=== PATIENT | male | born 1950 | race Caucasian/White ===

== ENCOUNTER → 2018-12-27 | Outpatient (REF) | payer MEDICARE | LOC: M LAB REF 17:07 | PROVIDERS: ATTEND Podiatrist | DX: M79.671 Pain in right foot (principal) ==

== ENCOUNTER → 2019-02-13 | Outpatient (REF) | payer MEDICARE ==
[2019-02-13 14:34] LABS: APPEARANCE, URINE CLOUDY (CLEAR); BACTERIA, URINE AUTO NEGATIVE (NEGATIVE); BILIRUBIN, URINE AUTO NEGATIVE (NEGATIVE); BLOOD, URINE BLOOD 3+ (NEGATIVE); CALCIUM OXALATE CRYSTALS MODERATE; COLOR, URINE RED (YELLOW); GLUCOSE, URINE (UA) AUTO 3+ mg/dL (NEGATIVE); KETONE, URINE AUTO NEGATIVE (NEGATIVE); LEUKOCYTE ESTERASE, URINE AUTO NEGATIVE (NEGATIVE); MUCUS, URINE SMALL (NEGATIVE); NITRITE, URINE AUTO NEGATIVE (NEGATIVE); PROTEIN, URINE AUTO 2+ mg/dL (NEGATIVE); RBC, URINE AUTO TNTC /HPF (0-3); SPECIFIC GRAVITY URINE AUTO 1.024 (1.002-1.035); SQUAMOUS EPITHELIAL CELL UR AU 0 /HPF (0-6); UROBILINOGEN, URINE AUTO 0.2 mg/dL (0.0-2.0); WBC, URINE AUTO TNTC /HPF (0-3)
== END ==
LOC: M SMT 13:11
PROVIDERS: ATTEND Nurse Practitioner Women's Health
DX: N20.1 Calculus of ureter (principal)
CPT/HCPCS: 51702; 51798; 81001; 87086; G0463

== ENCOUNTER 2019-03-01 07:45 | Day surgery (SDC) | payer MEDICARE ==
[~2019-03-01] VITALS: Ht 190.5 cm; Wt 89.4 kg
[~2019-03-01 07:45] MED LIST: CART120C PO; DIPH2.5T15 PO; FURO40TA2 PO; LISI-542 PO; LOPE2TAB12 PO; LR 1,000 ML IV ONE; METF10004 PO; MINO100C4 PO; PANT40TA3 PO; POTA1TAB14 PO; TAMS1CAP17 PO; XARE20TA PO; [UNRECOGNIZED DRUG - OTHER]; ceFAZolin SOD 2 GM in IV 1 EA IV ONE
[2019-03-01] MEDS ORDERED: ONDANSETRON 4MG/2ML VIAL (J2405) As Ordered ONE (08:03)
[2019-03-01] MEDS ORDERED: LIDOCAINE 2% INJ 100 MG/5 ML SDV (FOR ANES.) As Ordered ONE (08:03)
[2019-03-01] MEDS ORDERED: dexameTHASONE 4 MG/ML 1ML VIAL (J1100) As Ordered ONE (08:03)
[2019-03-01] MEDS ORDERED: PROPOFOL 200 MG/20 ML VIAL As Ordered ONE (08:03)
[2019-03-01 08:27] LABS: INR 1.17; PROTHROMBIN TIME 14.7 SECONDS (11.8-14.0)
[2019-03-01] MEDS ORDERED: CONRAY-60 60% 50ML VIAL (Q9961) As Ordered ONE (08:48)
[2019-03-01] MEDS ORDERED: fentaNYL 100 MCG/2 ML INJECTION (J3010) As Ordered ONE (09:00)
[2019-03-01] MEDS ORDERED: HumaLOG INSULIN (NovoLOG) PER UNIT As Ordered ONE (09:16)
--- NOTE | 2019-03-01 11:58 | REP ---
Retrograde pyelogram: Three views. History: Cystoscopy right stent. 30 seconds of fluoroscopy time is reported. Findings: A sequence of three last image hold fluoroscopically obtained spot radiographs document right ureteral cannulation, contrast injection, and stent placement. Electronically Signed by Jabari Thompson MD 03/01/2019 11:50 A
[2019-03-01] MEDS ORDERED: HumaLOG INSULIN (NovoLOG) PER UNIT SC SCH ×2 (12:00→21:00)
[2019-03-01] MEDS ORDERED: ONDANSETRON 4MG/2ML VIAL (J2405) IV PRN (12:15)
[2019-03-01] MEDS ORDERED: IBUPROFEN 600 MG TAB PO PRN (12:15)
[2019-03-01] MEDS ORDERED: LR 1,000 ML IV SCH (12:15)
[2019-03-01] MEDS ORDERED: NS 1,000 ML IV SCH (12:15)
[2019-03-01] MEDS ORDERED: fentaNYL 100 MCG/2 ML INJECTION (J3010) IV PRN (12:15)
[2019-03-01] MEDS ORDERED: NORCO, ANEXSIA 5/325MG TABLET (HYDROcodone/ACETAMINOPHEN) PO PRN (12:30)
[2019-03-01 14:20] VITALS: BP 148/72
--- NOTE | 2019-03-06 11:08 | RO ---
DATE OF PROCEDURE: 03/01/2019 PREOPERATIVE DIAGNOSIS: Right ureteral calculus. POSTOPERATIVE DIAGNOSIS: Right ureteral calculus with bladder lesion. PROCEDURE: Cystoscopy with right retrograde pyelogram, ureteroscopic laser lithotripsy, stent insertion, bladder biopsy and fulguration. SURGEON: Dr. Bhavin Oliveira. ANESTHESIA: General. INDICATION FOR OPERATION: This is a 69-year-old white male who was found on CAT scan to have an obstructing right ureteral calculus and therefore brought to the operating room for treatment. DESCRIPTION OF OPERATION: The patient was placed on the table in a supine position and general anesthesia was administered. He was then placed into lithotomy position, prepped with Betadine paint and draped in an aseptic manner. Time out was then performed. A rigid uteroscope was then inserted into the meatus and then advanced under direct vision of a 30 degree lens to the bladder. The urethral channel and prostate appeared normal. In the bladder, the patient had superior inflammation and irregularities consistent with catheter irritation but he has not had indwelling catheter. It was also consistent with chronic cystitis, bladder tumor or radiation cystitis. The right ureteral orifice was catheterized with a #5-[place] open ended catheter and retrograde injection of Conray confirmed a large stone in the upper portion of the midureter. A wire guide was able to be passed around the stone up to the renal pelvis and the cystoscope was removed. A semi-rigid ureteroscope was then advanced along the urine channel and into the right ureteral orifice with the aid of a working wire. Because of extremely tight lumen the scope could not be advanced and the scope was therefore removed after leaving a working wire in place. A flexible ureteroscope was then passed down the working wire and was able to be manipulated up to the stone. The stone was then treated with laser lithotripsy to break it completely and fragment it into many small fragments. The larger fragments were removed with the basket. The ureteroscope was then exchanged for a cystoscope which is backloaded over the safety wire and a #6-[place] double J stent was passed over this wire and seemed to curl well in the renal pelvis and the bladder when the wire was removed. A cup biopsy was then performed on the posterior and anterior wall of the bladder and these areas were fulgurated. Stone fragments were retrieved, bladder was drained and the cystoscope was removed. The patient was then awakened and sent to the recovery room in stable condition, having tolerated the procedure well.
== END 2019-03-01 14:25 | disposition home or self-care (01) ==
LOC: M SDC 07:45
PROVIDERS: ATTEND Urology
DX: N20.1 Calculus of ureter (principal); N13.39 Other hydronephrosis; R33.9 Retention of urine, unspecified; C18.9 Malignant neoplasm of colon, unspecified; N40.0 Benign prostatic hyperplasia without lower urinary tract symptoms; R60.0 Localized edema; E11.9 Type 2 diabetes mellitus without complications; I48.0 Paroxysmal atrial fibrillation; G47.33 Obstructive sleep apnea (adult) (pediatric); E78.2 Mixed hyperlipidemia; G61.0 Guillain-Barre syndrome; Z87.891 Personal history of nicotine dependence; Z79.899 Other long term (current) drug therapy; Z79.01 Long term (current) use of anticoagulants; Z79.84 Long term (current) use of oral hypoglycemic drugs; Z92.3 Personal history of irradiation
CPT/HCPCS: 36415; 52204; 52356; 74420; 82360; 85610; 88300; 88305; C1769; C2617; J0690; J2405; J3010; Q9961

== ENCOUNTER → 2021-09-07 | Outpatient (REF) | payer MEDICARE ==
[~2021-09-07] MED LIST changes: -LISI-542 PO; +LISI5TAB11 PO; -LR 1,000 ML IV ONE; +PANT40TA29 PO; -PANT40TA3 PO; -ceFAZolin SOD 2 GM in IV 1 EA IV ONE
== END ==
LOC: M LABDRAWC 15:36
PROVIDERS: ATTEND Internal Medicine Hematology & Oncology
DX: C79.51 Secondary malignant neoplasm of bone (principal); C19 Malignant neoplasm of rectosigmoid junction; R33.9 Retention of urine, unspecified